=== PATIENT | male | born 1995 | race Caucasian/White ===

== ENCOUNTER 2022-03-28 07:14 | Emergency (ER) | payer BC, OTHER ==
[~2022-03-28] VITALS: Ht 152.4 cm; Wt 52.2 kg
[2022-03-28 07:25] VITALS: BP 103/74
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
--- NOTE | 2022-03-28 08:16 | Diagnostic Imaging Report ---
Indication: Hand pain FINDINGS: 4 view right hand performed including a carpal tunnel radiograph. The hamate hook was intact. The proximal and distal carpal rows showed no fracture or traumatic malalignment. Distal ulna and radius appeared intact. Metacarpals and phalanges intact. Impression: Complete right hand series showed no fracture, dislocation or acute appearing abnormality. In particular the hamate appeared normal. Dictated by: Dictated on workstation # [id number]
== END 2022-03-28 08:23 | disposition home or self-care (01) ==
LOC: ER FS 07:17
DX: G56.21 Lesion of ulnar nerve, right upper limb (principal); Z28.310 Unvaccinated for COVID-19
CPT/HCPCS: 29125; 73130

== ENCOUNTER 2022-04-26 07:04 | Emergency (ER) | payer BC ==
[~2022-04-26] VITALS: Ht 152.4 cm; Wt 49.0 kg
[2022-04-26] MEDS ORDERED: predniSONE 20 MG TAB PO ONE (07:30)
--- NOTE | 2022-04-26 07:35 | ED Respiratory ---
General Chief Complaint: Respiratory Problems Stated Complaint: SOB; COUGH Source: patient Exam Limitations: no limitations History of Present Illness Date Seen by Provider: Apr 26, 2022 Time Seen by Provider: 07:00 Initial Comments Patient is a 26 yo male smoker with h/o asthma who presents with cough, shortness of breath, and wheezing. No fever, chills or sweats. No sore throat, bodyaches, rash. No other acute symptoms or complaints. Timing/Duration: just prior to arrival Severity: moderate Prior Episodes/Possible Cause: other Modifying Factors: Improves With Other Associated Symptoms: other Allergies and Home Medications Allergies Coded Allergies: No Known Drug Allergies (Unverified , 03/28/22) Patient Home Medication List Home Medication List Reviewed: Yes Review of Systems Review of Systems Constitutional: see HPI EENTM: see HPI Respiratory: see HPI Cardiovascular: see HPI Gastrointestinal: see HPI Genitourinary: see HPI Musculoskeletal: see HPI Skin: see HPI Psychiatric/Neurological: See HPI Hematologic/Lymphatic: See HPI Immunological/Allergic: see HPI All Other Systems Reviewed Negative Unless Noted: No Past Decjedi-Uigttk-Ldkstq Hx Patient Social History Tobacco Use?: Yes Tobacco type used: Cigarettes Smoking Status: Heavy Tobacco Smoker Smokeless Tobacco Frequency: Never a User Use of E-Cig and/or Vaping dev: No Use of E-Cig and/or Vaping Spike: Never a User Substance use?: No Alcohol Use?: No Pt feels they are or have been: No Past Medical History Surgeries: No Physical Exam Vital Signs - First Documented Capillary Refill : Height: '" Weight: lbs. oz. kg; 22.00 BMI Method: General Appearance: WD/WN, no apparent distress Eyes: Bilateral Eye Normal Inspection, Bilateral Eye PERRL, Bilateral Eye EOMI, Bilateral Eye Abnormal EOM HEENT: PERRL/EOMI, normal ENT inspection, pharynx normal Neck: non-tender, full range of motion, normal inspection Respiratory: decreased breath sounds, rhonchi Cardiovascular: normal peripheral pulses, regular rate, rhythm, no edema Gastrointestinal: non tender, soft Extremities: non-tender Neurologic/Psychiatric: no motor/sensory deficits, alert, oriented x 3 Focused Exam Sepsis Stage: Ruled Out Progress/Results/Core Measures Suspected Sepsis SIRS Temperature: Pulse: Respiratory Rate: Blood Pressure / Mean: Results/Orders Lab Results Laboratory Tests Test 04/26/22 07:17 Range/Units Influenza Type A (RT-PCR) Not Detected Not Detecte Influenza Type B (RT-PCR) Not Detected Not Detecte SARS-CoV-2 RNA (RT-PCR) Not Detected Not Detecte My Orders Orders - YVONNE LA DO Prednisone Tablet (Deltasone Tablet) (04/26/22 07:30) Vital Signs/I&O 04/26/22 04/26/22 07:11 07:11 Temp 36.3 Pulse 71 Resp 16 B/P (MAP) 110/86 (94) O2 Delivery Room Air Room Air Capillary Refill : Departure Communication (Admissions) CXR: interstitial lung Patient with RAD without mild persistent asthma exacerbation Impression Primary Impression: Asthma with exacerbation Disposition: HOME, SELF-CARE Condition: Stable Departure-Patient Inst. Decision time for Depature: 07:50 Referrals: NO,LOCAL PHYSICIAN (PCP/Family) Primary Care Physician Patient Instructions: Asthma, Adult ED Add. Discharge Instructions: You were evaluated in the ED for shortness of breath. Please go home and rest and take newly prescribed medications as directed. Follow up with your PCP for re-evaluation in 3-5 days. Return to the ED if new or worsening symptoms. All discharge instructions reviewed with patient and/or family. Voiced unders tanding. Scripts Albuterol Sulfate (Proventil Hfa) 6.7 Gm Hfa.aer.ad 2 PUFF INH Q6H for SHORTNESS OF BREATH, #1 EACH Prov: YVONNE LA 04/26/22 Prednisone (Prednisone) 20 Mg Tab 40 MG PO DAILY, #6 TAB 0 Refills Prov: ABHINAVYVONNE 04/26/22 Azithromycin (Zithromax) 250 Mg Tablet 250 MG PO UD, #6 TAB TAKE 2 TABLETS TODAY, THEN TAKE 1 TABLET DAILY FOR 4 MORE DAYS Prov: LAYVONNE 04/26/22 Work/School Note: Work Release Form Date Seen in the Emergency Department: Apr 26, 2022 Return to Work: Apr 27, 2022 Restrictions: No Restrictions LAYVONNE QUINONEZ Apr 26, 2022 07:34
[2022-04-26] MEDS ORDERED: AZIT250T PO (07:51)
[2022-04-26] MEDS ORDERED: PRD20T PO (07:51)
[2022-04-26] MEDS ORDERED: RT-ALBUINH INH (07:52)
[2022-04-26 08:09] VITALS: BP 113/67
--- NOTE | 2022-04-27 13:39 | Diagnostic Imaging Report ---
INDICATION: Shortness of breath. No prior examinations are available for comparison. FINDINGS: The heart size, mediastinal configuration, and pulmonary vascularity are within normal limits. There is no pleural effusion, pneumothorax, or pneumonia. The osseous structures are unremarkable. IMPRESSION: No acute cardiopulmonary abnormality. Dictated by: Dictated on workstation # [id number]
== END 2022-04-26 08:09 | disposition home or self-care (01) ==
LOC: EDUNIT# 07:04 → ER FS 07:06
DX: J45.901 Unspecified asthma with (acute) exacerbation (principal); F17.210 Nicotine dependence, cigarettes, uncomplicated; Z20.822 Contact with and (suspected) exposure to COVID-19; Z28.310 Unvaccinated for COVID-19
CPT/HCPCS: 71045; 87636

== ENCOUNTER 2023-01-23 10:22 | Emergency (ER) | payer BC, OTHER ==
[~2023-01-23] VITALS: Ht 154.9 cm; Wt 51.4 kg
[~2023-01-23 10:22] MED LIST: AZIT250T PO; PRD20T PO; RT-ALBUINH INH
[2023-01-23 10:30] VITALS: BP 129/96
--- NOTE | 2023-01-23 10:45 | ED Upper Extremity ---
General Chief Complaint: Upper Extremity Stated Complaint: WC LT SHOULDER PAIN Source: patient Exam Limitations: no limitations History of Present Illness Date Seen by Provider: Jan 23, 2023 Time Seen by Provider: 10:31 Initial Comments 27-year-old male presents to the emergency department today for left shoulder pain. He was carrying a large 6 x 6 window by himself at work on 01/17. He had pain in his left shoulder that extends through his chest and abdomen and down to his right knee thereafter. He was seen in the [facility] 2 days later in the emergency department and got x-rays which were reportedly negative. He is continued to have pain. He is wearing a sling on his left shoulder. Hurts into his back as well, diffusely. No LE weakness, numbness/tingling. He has not seen occupational health yet. All other systems reviewed and negative except documented per HPI. Voice recognition software was used to help create this chart Allergies and Home Medications Allergies Coded Allergies: No Known Drug Allergies (Unverified , 03/28/22) Patient Home Medication List Home Medication List Reviewed: Yes Albuterol Sulfate (Proventil Hfa) 6.7 Gm Hfa.aer.ad, 2 PUFF INH Q6H Prescribed by: YVONNE LA on 04/26/22 0752 Azithromycin (Zithromax) 250 Mg Tablet, 250 MG PO UD Prescribed by: YVONNE LA on 04/26/22 0751 Prednisone (Prednisone) 20 Mg Tab, 40 MG PO DAILY Prescribed by: YVONNE LA on 04/26/22 0751 Review of Systems Constitutional: see HPI Past Ksufhkj-Fhiwhp-Kotstb Hx Patient Social History Tobacco Use?: No Substance use?: No Alcohol Use?: Yes Pt feels they are or have been: No Past Medical History Surgeries: No Physical Exam Vital Signs Vital Signs - First Documented 01/23/23 10:30 Temp 35.1 Pulse 65 Resp 18 B/P (MAP) 129/96 (107) Pulse Ox 100 O2 Delivery Room Air Capillary Refill : Height, Weight, BMI Height: '" Weight: lbs. oz. kg; 21.00 BMI Method: General Appearance: WD/WN, no apparent distress HEENT: normal ENT inspection, pharynx normal Neck: non-tender, full range of motion, supple, normal inspection Cardiovascular: regular rate, rhythm, no murmur Respiratory: chest non-tender, no accessory muscle use Gastrointestinal: normal bowel sounds, non tender, soft Back: normal inspection, no CVA tenderness, vertebral tenderness (mild midline tenderness diffusely) Shoulder: soft tissue tenderness (Tenderness palpation diffusely about the left shoulder and the left parascapular region medially. No obvious deformity. Normal range of motion. Neurovascular motor and sensory intact. Axillary sensation intact.) Elbow/Forearm: normal inspection, non-tender, no evidence of injury Wrist: Yes normal inspection, Yes non-tender, Yes no evidence of injury Hand: normal inspection, non-tender, no evidence of injury Neurologic/Tendon: normal sensation, normal motor functions, normal tendon functions Neurologic/Psychiatric: alert, normal mood/affect, oriented x 3 Skin: normal color, warm/dry Progress/Results/Core Measures Results/Orders Vital Signs/I&O 01/23/23 10:30 Temp 35.1 Pulse 65 Resp 18 B/P (MAP) 129/96 (107) Pulse Ox 100 O2 Delivery Room Air Departure Communication (Admissions) Patient is hemodynamically stable, neurovascular and sensory intact. He is already had x-rays which are negative. Advised he needs to follow-up with occupational health for further work restrictions. Impression Primary Impression: Left shoulder pain Qualified Codes: M25.512 - Pain in left shoulder Disposition: 01 HOME, SELF-CARE Condition: Stable Departure-Patient Inst. Referrals: NO,LOCAL PHYSICIAN (PCP) Primary Care Physician Patient Instructions: Active Range of Motion Exercises, Neck and Shoulders, Passive Range of Motion Exercises, Neck and Shoulders, Shoulder Pain ED Add. Discharge Instructions: Perform exercises as outlined in the handouts. You need to follow-up with occupational health for further work restrictions and release. All discharge instructions reviewed with patient and/or family. Voiced understanding. MUNIRA ANGUIANO DO Jan 23, 2023 10:45
== END 2023-01-23 10:48 | disposition home or self-care (01) ==
LOC: EDUNIT# 10:22 → ER FS 10:24
DX: M25.512 Pain in left shoulder (principal)
CPT/HCPCS: 99281